=== PATIENT | male | born 1975 | race Two or more races ===

== ENCOUNTER 2023-06-11 12:47 | Emergency (ER) | payer SELFPAY ==
[2023-06-11] VITALS (50 sets, daily range): BP systolic 111–144; BP diastolic 73–99; PULSE 61–100; RESP 16–27; TEMP 36.3–36.8; O2SAT 98–100
--- NOTE | ~2023-06-11 | XR_ITS ---
EXAMINATION: XR chest 1V portable Exam Date/Time: 06/11/2023 17:40 CDT HISTORY: chest pain Comparison: None. RESULT: Lines, tubes, and devices: None. Lungs and pleura: Fibrolinear scar, pleural thickening, and reticulonodular opacities in the left up per lobe. 7 mm right upper lung pulmonary nodule. Upper lobe scar on the right with retraction of the minor fissure. Reticulonodular opacities in the lateral aspect of the right lower lung. Cardiomediastinal silhouette: Left hilar retraction. Other: No acute osseous or upper abdominal finding. IMPRESSION: Reticulonodular opacities in the left upper lung and right lower lung represent acute/chronic atypica l infection. Fibrolinear scarring in the bilateral upper lobes with retraction. 7 mm right upper lung pulmonary nodule, recommend comparison to outside studies if available, or low- dose noncontrast CT of the chest in 6-12 months. Reviewed, dictated and finalized at location K. IMPRESSION: Reticulonodular opacities in the left upper lung and right lower lung represent acute/chronic atypical infection. Fibrolinear scarring in the bilateral upper lobes with retraction. 7 mm right upper lung pulmonary nodule, recommend comparison to outside studies if available, or low-dose noncontrast CT of the chest in 6-12 months.
--- NOTE | 2023-06-11 13:16 | ECG_ITS ---
Measurements Intervals [place] Rate: 72 P: 85 RI: 157 QRS: 83 QRSD: 102 T: 59 QT: 361 QTc: 396 Interpretive Statements SINUS RHYTHM VOLTAGE CRITERIA FOR LVH [MEETS CRITERIA IN ONE OF: R(aVL), S(V1), R(V5), R(V5/V6)+S(V1)] DIFFUSE ST ELEVATIONS SUGGESTIVE OF EARLY REPOLARIZATION NO PREVIOUS ECG AVAILABLE FOR COMPARISON Electronically Signed On 06-11-2023 20:25:16 CDT by Mary Zayas M.D.
--- NOTE | 2023-06-11 13:38 | ED.DIZZY ---
HPI - Dizziness General Chief Complaint: Dizziness Stated Complaint: dizzy Time Seen by Provider: 06/11/23 13:21 History of Present Illness HPI Narrative: 48-year-old male present to the emergency department for multiple complaints. Patient states during the night he has been having increased pain in his fingers and feet. Patient states over the last 3 weeks he has had constant left-sided chest pain. Patient denies any associated shortness of breath. Patient also reports he has had some back pain and abdominal pain. Patient denies any other prior cardiac history. Review of Systems Review of Systems: All systems reviewed & are unremarkable except as noted in HPI and below Exam Narrative: APPEARANCE: Well appearing, no pain, no distress, well-nourished. HEAD: normocephalic, atraumatic. EYES: PERRLA/EOMI, conjunctivae clear. NOSE: Normal no drainage THROAT: Pharynx clear, no exudate. NECK: Supple. No adenopathy, no masses. RESPIRATORY: Airway patent, respirations nonlabored. Clear to auscultation bilaterally, no rales, rhonchi, wheezing. CARDIOVASCULAR: Regular rate and rhythm without murmurs rubs or gallops. ABDOMINAL: Soft, nontender, nondistended, normal bowel sounds MUSCULOSKELETAL: Moves all extremities. Strength/ROM intact, No edema, No calf tenderness. NEURO: Alert. Cranial nerves II through XII intact. Grossly intact SKIN: Warm, dry. Normal Color Course Course Emergency Course: 48-year-old male present emergency department for evaluation of left-sided chest pain has been going on for the last 3 weeks. Patient is afebrile with no leukocytosis and a stable hemoglobin of 15.7. Patient had no significant abnormalities on his CMP. Patient had negative serial troponins. Chest x-ray did show possible pneumonia and patient was started on antibiotics. Vital Signs Vital signs: Vital Signs Temperature 97.3 F L 06/11/23 13:11 Pulse Rate 89 06/11/23 13:11 Respiratory Rate 20 06/11/23 13:11 Blood Pressure 144/83 H 06/11/23 13:11 Pulse Oximetry 100 06/11/23 13:11 Oxygen Delivery Room Air 06/11/23 13:11 Temperature 98.2 F 06/11/23 18:48 Pulse Rate 74 06/11/23 18:48 Respiratory Rate 17 06/11/23 18:48 Blood Pressure 119/81 06/11/23 18:48 Pulse Oximetry 100 06/11/23 18:48 Oxygen Delivery Room Air 06/11/23 13:11 MDM - Dizziness Differential Diagnosis Differential diagnosis: Likely other (Pneumonia, DVT, PE, pulmonary embolism, pneumothorax) Lab Data Attestation: I reviewed the patient's lab results. 06/11/23 13:51 06/11/23 13:51 Labs: Lab Results 06/11/23 06/11/23 Range/Units 13:51 16:50 WBC 5.8 (4.5-10.0) K/mm3 RBC 5.83 (4.6-6.20) M/mm3 Hgb 15.7 (14.0-18.0) g/dL Hct 50.7 (42.0-52.0) % MCV 87.0 (80-100) fl MCH 26.9 (26-34) pg MCHC 31.0 L (32-36) g/dl RDW 14.2 (11.5-14.5) % Plt Count 194 (150-375) k/mm3 MPV 12.0 H (7.4-10.4) fl Immature Gran % (Auto) 0.2 (0-0.5) % Neut % (Auto) 62.4 (45.5-73.1) % Lymph % (Auto) 30.9 (18.3-44.2) % [place] % (Auto) 5.5 (2.6-8.5) % Eos % (Auto) 0.5 (0-4.4) % Baso % (Auto) 0.5 (0.2-1.2) % Lymph # (Auto) 1.79 (0.9-3.2) K/mm3 [place] # (Auto) 0.3 (0.1-0.6) K/mm3 Eos # (Auto) 0.0 (0-0.3) K/mm3 Baso # (Auto) 0.0 (0.0-0.1) K/mm3 Abs Immat Gran (auto) 0.01 (0.00-0.031) K/mm3 Absolute Neuts (auto) 3.6 (1.3-6.7) K/mm3 Absolute Nucleated RBC 0.0 (0.0-0.012) K/mm3 Nucleated RBC % 0.0 (0.0-0.2) % D-Dimer < 0.27 (<0.48) ug/mL Sodium 136 L (137-145) mmol/L Potassium 4.7 (3.4-5.0) mmol/L Chloride 98 (98-107) mmol/L Carbon Dioxide 32 H (22-30) mmol/L Anion Gap 6 L (8-16) mmol/L BUN 11 (9-20) mg/dL Creatinine 0.80 (0.7-1.3) mg/dL Estim Creat Clear Calc 85 ml/min Estimated GFR > 60 (59 - ) Glucose 113 H (65-110) mg/dL Calcium 9.7 (8.4-10.2) mg/dL Magnesium 2.6 H (1.6-2.3) mg/dL Tota
[2023-06-11 13:58] LABS: Basophils Percent Auto 0.5 % (0.2-1.2); Eosinophils Percent Auto 0.5 % (0-4.4); Hematocrit 50.7 % (42.0-52.0); Hemoglobin 15.7 g/dL (14.0-18.0); Immature Granulocyte Absolute 0.01 K/mm3 (0.00-0.031); Immature Granulocyte Percent A 0.2 % (0-0.5); Lymphocytes Absolute Auto 1.79 K/mm3 (0.9-3.2); Lymphocytes Percent Auto 30.9 % (18.3-44.2); Mean Corpuscular Hemoglobin 26.9 pg (26-34); Monocytes Absolute Auto 0.3 K/mm3 (0.1-0.6); Monocytes Percent Auto 5.5 % (2.6-8.5); Neutrophils Absolute Auto 3.6 K/mm3 (1.3-6.7); Neutrophils Percent Auto 62.4 % (45.5-73.1); Platelet Count Result 194 k/mm3 (150-375); Red Blood Count 5.83 M/mm3 (4.6-6.20); Red Cell Distribution Width 14.2 % (11.5-14.5); White Blood Count 5.8 K/mm3 (4.5-10.0)
[2023-06-11 14:10] LABS: Alanine Aminotransferase 32 U/L (6-50); Albumin Level 4.9 g/dL (3.5-5.1); Alkaline Phosphatase 44 U/L (38-126); Anion Gap 6 mmol/L (8-16); Aspartate Amino Transferase 38 U/L (17-59); Bilirubin,Total 0.5 mg/dL (0.2-1.3); Blood Urea Nitrogen 11 mg/dL (9-20); Calcium 9.7 mg/dL (8.4-10.2); Carbon Dioxide 32 mmol/L (22-30); Chloride 98 mmol/L (98-107); Estimated CRCL calculation 85 ml/min; Estimated Glomerular Filt Rate > 60; Glucose 113 mg/dL (65-110); Magnesium 2.6 mg/dL (1.6-2.3); Potassium 4.7 mmol/L (3.4-5.0); Sodium 136 mmol/L (137-145)
[2023-06-11 14:19] LABS: Troponin I 0.015 ng/mL (0.000-0.034)
[2023-06-11 14:25] LABS: D Dimer < 0.27 ug/mL (<0.48)
[2023-06-11] MEDS: SODIUM CHLORIDE 0.9% IV 1,000 ML 999 ML IV CONT (14:40)
--- NOTE | 2023-06-11 16:04 | PC.NURSE ---
unable to get accurate bp. provider notified and went to bedside. trying repeat monitor and manual bp. no further orders at this time
[2023-06-11 17:22] LABS: Troponin I < 0.012 ng/mL (0.000-0.034)
== END 2023-06-11 18:49 | disposition home or self-care (01) ==
PROVIDERS: Emergency Medicine; Emergency Provider Emergency Medicine
DX: J18.9 Pneumonia, unspecified organism (principal); R07.9 Chest pain, unspecified; M79.642 Pain in left hand; M79.641 Pain in right hand
CPT/HCPCS: 36415; 71045; 80053; 83735; 84443; 84484; 85025; 85380; 93005; 96360; 99284; J7030

== ENCOUNTER 2024-10-03 17:07 | Emergency (ER) | payer OTHER, SELFPAY ==
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
--- OUTSIDE RECORDS SUMMARY | 2024-10-03 17:10 | XMS_ITS ---
Author Organization [facility] Address [address] [place] [id number] Care Team Providers Care Siebel Solution Architect Name Role Phone Bárbara Noemi Unavailable [phone] REASON FOR VISIT Numbness in fingers and toes Encounters Encounter Location Date Provider Diagnosis [facility] [address] [place] Pugh [id number] 03/04/2024 Noemi Granger Plan Of Treatment No Information Progress Notes * Joaquín BERNABEDOB:1975 (49 yo M)Acc No.[id number]:03/04/2024 Progress Notes Patient: Joaquín HAYES Provider: Raysa Granger MD :1975 A ge:49 Y S ex:Male Date:03/04/2024 Phone: Address:[address] [place], [place] [id number] Subjective: * Chief Complaints: * 1 . Numbness in fingers and toes. * Medical History: Objective: * Vitals: Assessment: Plan: * Treatment: * Billing Information: * Visit Code: * Procedure Codes: * Electronic signature of Courtney Granger MD on 10/03/2024 at 05:10 PM CHIEF AIRPORT GUIDE Sign off status: Pending * Provider: Raysa Granger MD Date: 03/04/2024 Generated for Darwin garza/Vineet/Iraitting on: 10/03/2024 05:10 PM CHIEF AIRPORT GUIDE
--- OUTSIDE RECORDS SUMMARY | 2024-10-03 17:10 | XMS_ITS | Patient Health Record ---
Author Organization [facility] Address [address] [place] [id number] Care Team Providers Care Material Control Supervisor Name Role Phone Noemi Granger [phone] Reason For Referral No Information Plan Of Treatment No Information
[2024-10-03 17:43] VITALS: BP 143/85; PULSE 89; RESP 20; TEMP 36.5; O2SAT 99
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
--- NOTE | 2024-10-03 19:23 | ECG_ITS ---
Test Date: 2024-10-03 21:03:40 Measurements Intervals [place] Rate: 69 P: 76 SC: 163 QRS: 76 QRSD: 98 T: 45 QT: 367 QTc: 395 Interpretive Statements SINUS RHYTHM WITH SINUS ARRHYTHMIA VOLTAGE CRITERIA FOR LVH ST ELEVATION IN DIFFUSE LEADS- PROBABLY EARLY REPOLARIZATION BORDERLINE ECG No previous ECG available for comparison Electronically Signed On 10-04-2024 06:57:22 WAX SPECIALIST by Brett Newton D.O.
[2024-10-03] MEDS: ACETAMINOPHEN 500 MG TABLET 1000 MG PO (19:36)
[2024-10-03] MEDS: KETOROLAC 15 MG/ML VIAL (*BKC) IM (19:37)
[2024-10-03] MEDS: HYDROmorphone HCL INJ (*CRX) 1 MG/ML SYR 0.5 MG IV PUSH (21:26)
--- NOTE | 2024-10-03 21:36 | PC.NURSE ---
Patient moved to room six for cardiac monitoring. Report to Kylah MARTIN
[2024-10-03 21:37] LABS: Basophils Percent Auto 0.5 % (0.2-1.2); Eosinophils Percent Auto 0.2 % (0-4.4); Hematocrit 44.8 % (42.0-52.0); Hemoglobin 14.4 g/dL (14.0-18.0); Immature Granulocyte Absolute 0.01 K/mm3 (0.00-0.031); Immature Granulocyte Percent A 0.1 % (0-0.5); Lymphocytes Absolute Auto 1.51 K/mm3 (0.9-3.2); Lymphocytes Percent Auto 18.7 % (18.3-44.2); Mean Corpuscular HGB Conc 32.1 g/dl (32-36); Mean Corpuscular Hemoglobin 27.7 pg (26-34); Mean Corpuscular Volume 86.2 fl (80-100); Mean Platelet Volume 12.1 fl (7.4-10.4); Monocytes Absolute Auto 0.6 K/mm3 (0.1-0.6); Monocytes Percent Auto 7.8 % (2.6-8.5); Neutrophils Absolute Auto 5.9 K/mm3 (1.3-6.7); Neutrophils Percent Auto 72.7 % (45.5-73.1); Platelet Count Result 150 k/mm3 (150-375); Red Cell Distribution Width 13.8 % (11.5-14.5); White Blood Count 8.1 K/mm3 (4.5-10.0)
[2024-10-03 22:05] LABS: Alanine Aminotransferase 27 U/L (6-50); Albumin Level 4.8 g/dL (3.5-5.1); Alkaline Phosphatase 59 U/L (38-126); Anion Gap 12 mmol/L (4-12); Aspartate Amino Transferase 33 U/L (17-59); Bilirubin,Total 0.4 mg/dL (0.2-1.3); Blood Urea Nitrogen 18 mg/dL (9-20); Calcium 10.1 mg/dL (8.4-10.2); Carbon Dioxide 28 mmol/L (22-30); Chloride 99 mmol/L (98-107); Estimated CRCL calculation 88 ml/min; Estimated Glomerular Filt Rate > 60; Glucose 99 mg/dL (65-110); Potassium 4.1 mmol/L (3.4-5.0); Sodium 139 mmol/L (137-145)
[2024-10-03 22:17] LABS: Troponin I < 0.012 ng/mL (0.000-0.034)
[2024-10-03 23:23] VITALS: BP 114/79; PULSE 67; RESP 21; O2SAT 100
--- NOTE | 2024-10-04 00:08 | ECG_ITS ---
Test Date: 2024-10-04 00:15:42 Measurements Intervals [place] Rate: 72 P: 74 [place]: 173 QRS: 80 QRSD: 102 T: 50 QT: 366 QTc: 401 Interpretive Statements SINUS RHYTHM ST ELEVATION IN DIFFUSE LEADS- PROBABLY EARLY REPOLARIZATION BASELINE ARTIFACT- I, III, AVR, AVL, AVF BORDERLINE ECG Compared to ECG 10/03/2024 21:03:40 NO SIGNIFICANT CHANGE Electronically Signed On 10-04-2024 07:00:42 MARKETING WRITER by Brett Newton D.O.
[2024-10-04 00:35] LABS: Troponin I < 0.012 ng/mL (0.000-0.034)
== END 2024-10-04 00:59 | disposition home or self-care (01) ==
PROVIDERS: Emergency Provider Emergency Medicine
DX: S42.022A Displaced fracture of shaft of left clavicle, initial encounter for closed fracture (principal); V47.5XXA Car driver injured in collision with fixed or stationary object in traffic accident, initial encounter
CPT/HCPCS: 36415; 71046; 73000; 73030; 80053; 84484; 85025; 93005; 96372; 96374; 99284; A4565; A9270; J1171; J1885